=== PATIENT | female | born 1990 | race Caucasian/White ===

== ENCOUNTER 2017-10-18 08:13 | Outpatient (RCR) | payer MEDICAID ==
[2016-08-02 11:58] VITALS: BMI 30.1
[2017-09-13 12:25] VITALS: BP 122/73
[2017-09-13] MEDS: NS(*) 0.9% 100 ML BAG 100 ML IVPB PRN (12:35)
[2017-09-13] MEDS: LIDOCAINE/SOD BICARB 8.4% SYR ID PRN (12:35)
[2017-09-20 08:23] VITALS: BP 122/79
[2017-09-20] MEDS: LIDOCAINE/SOD BICARB 8.4% SYR ID PRN (08:29)
[2017-09-20] MEDS: NS(*) 0.9% 100 ML BAG 100 ML IVPB PRN (08:29)
[2017-09-27 08:35] VITALS: BP 111/84
[2017-09-27] MEDS: LIDOCAINE/SOD BICARB 8.4% SYR ID PRN (08:37)
[2017-09-27] MEDS: NS(*) 0.9% 100 ML BAG 100 ML IVPB PRN (08:37)
[2017-10-04 08:22] VITALS: BP 126/79
[2017-10-04] MEDS: LIDOCAINE/SOD BICARB 8.4% SYR ID PRN (08:42)
[2017-10-04] MEDS: NS(*) 0.9% 100 ML BAG 100 ML IVPB PRN (08:42)
[2017-10-04 13:29] VITALS: BP 117/67
[2017-10-11 08:39] VITALS: BP 115/77
[2017-10-11] MEDS: NS(*) 0.9% 100 ML BAG 100 ML IVPB PRN (08:58)
[2017-10-11] MEDS: LIDOCAINE/SOD BICARB 8.4% SYR ID PRN (08:58)
[~2017-10-18 08:13] MED LIST: DEXTROSE 5%(*) 100 ML BAG 100 ML IVPB PRN; DOCU-416 PO; IBUP800T37 PO; OXYC-865 PO; [UNRECOGNIZED DRUG - MIXTURE] IV ONE
[2017-10-18] MEDS: LIDOCAINE/SOD BICARB 8.4% SYR ID PRN (08:43)
[2017-10-18] MEDS: NS(*) 0.9% 100 ML BAG 100 ML IVPB PRN (08:44)
[2017-10-18 08:45] VITALS: BP 122/76
[2017-10-18] MEDS ORDERED: [UNRECOGNIZED DRUG - MIXTURE] IV ONE (09:00)
== END 2017-11-21 10:26 | disposition home or self-care (01) ==
LOC: SPU 08:13
PROVIDERS: ATTEND Obstetrics & Gynecology
DX: O09.892 Supervision of other high risk pregnancies, second trimester (principal); O09.893 Supervision of other high risk pregnancies, third trimester
CPT/HCPCS: 96365; 96366; J1459; J7050